=== PATIENT | female | born 1935 | race Caucasian/White ===

== ENCOUNTER 2018-03-04 11:16 | Emergency (ER) | END 2018-03-04 15:48 | disposition home or self-care (01) ==

== ENCOUNTER 2019-07-19 10:31 | Inpatient (IN) | payer MEDICARE, BC ==
[~2019-07-19] VITALS: Ht 172.7 cm; Wt 87.0 kg
[~2019-07-19 10:31] MED LIST: AMOX500 PO; ASCO1ER; ASPI81CH; ASPI81EC; ASPI81EC PO; ATEN50; ATEN50 PO; Aspir 8181 MG PO; Aspirin EC325 MG PO; BENADRYL25 MG PO; BENAML10/2 PO; BENAML10/5 PO; BENAML20/5; BENAML20/5 PO; BUPR150ER PO; BUPR75 PO; CALCAVITDA; CALMAGZIN; CITA20 PO; COLE1 PO; CYCL10; CYCL10 PO; CYCL1OPSOA; DULO30; DULO30 PO; Diclofenac Sod2.5 ML OD; ELIQUIS5 MG PO; ESCI10; ESCI5 PO; FISH1000; FISH1000 PO; FURO20 PO; GABA400 PO; GLUCHON; HYCOSAMINE; HYDCHL25 PO; HYOS.125 SL; LEVSOD75 PO; LEVSOD88; LEVSOD88 PO; MECL25 PO; METO100ER PO; METO50ER PO; METPRE4DP PO; METRIBP PO; MODAFINIL100 MG PO; NEBI10 PO; NIAC500ER PO; NITR.4SL SL; NITR100CA PO; NITRSPRAY SL; Norco 5-325 Ta1 EACH PO; OMEP20ER; OMEP20ER PO; OMEP40CA12 PO; OMEPRAZOLE CAP 20M; OMEPRAZOLE MAGN20 MG PO; Omeprazole20 M1 PO; POLYMYXIN B; POTCHL10ER; POTCHL10ER PO; POTCHL20ER PO; PRAV20; PRAV20 PO; PRAV40 PO; PRED1SU BOTHEYES; PREVPAC PO; Percocet 5-3251 EACH PO; Prednisone20 MG PO; SERT50 PO; TOCO400; TRAM50 PO; TRAVER2180; TRI; TRIAOIA; TRIHYD5075; Ultram50 MG PO; VENL75; VITAMIN D-32000 UNIT PO; WARF10 PO; WARF2.5 PO; WARF3 PO; WARF5; WARF5 PO; WARF7.5 PO; ZOLP5; [UNRECOGNIZED DRUG - OTHER]
[2019-07-19 11:17] LABS: Source, Urine Clean Catch
[2019-07-19 11:21] LABS: Appearance, Urine Hazy (Clear); Bilirubin, Urine Neg (Neg); Blood, Urine 5+ (Neg); Color, Urine Yellow (P-Yellow); Glucose Qualitative, Urine Neg (Neg); Ketones, Urine 1+ (Neg); Leukocyte Esterase, Urine 1+ (Neg); Nitrite, Urine Neg (Neg); Protein, Urine 3+ (Neg); Urobilinogen, Urine NORM (Normal)
[2019-07-19 11:41] LABS: BASOPHILS ABSOLUTE AUTO 0.02 K/mm3 (0.00-0.23); BASOPHILS PERCENT AUTO 0 % (0-2); EOSINOPHILS ABSOLUTE AUTO 0.01 K/mm3 (0.00-0.68); EOSINOPHILS PERCENT AUTO 0 % (0-6); Hematocrit 44.6 % (33.0-51.0); Hemoglobin 14.7 g/dL (11.5-16.0); IMMATURE GRAN ABSOLUTE AUTO 0.11 K/mm3 (0.00-0.10); IMMATURE GRAN PERCENT AUTO 1 % (0-1); LYMPHOCYTES ABSOLUTE AUTO 0.81 K/mm3 (0.84-5.20); LYMPHOCYTES PERCENT AUTO 5 % (21-46); MONOCYTES ABSOLUTE AUTO 0.98 K/mm3 (0.16-1.47); MONOCYTES PERCENT AUTO 6 % (4-13); Mean Corpuscular HGB 29.8 pg (26.0-34.0); Mean Corpuscular Volume 90 fL (80-100); Mean Platelet Volume 8.9 fL (9.1-12.4); NEUTROPHILS PERCENT AUTO 88 % (41-73); Platelet Count 295 K/mm3 (150-400); RDW Coefficient Variation 13.4 % (11.7-14.2); RDW Standard Deviation 43.9 fL (35.1-46.3); Red Blood Cell Count 4.94 M/mm3 (3.80-5.20); White Blood Cell Count 15.83 K/mm3 (4.00-11.30)
[2019-07-19 11:46] LABS: Amorphous Heavy (0-Heavy); Bacteria Mod /hpf; Squamous Epithelial Cells Mod /hpf (Few)
[2019-07-19 11:51] LABS: Albumin, Blood 3.8 g/dL (3.4-5.0); Albumin/Globulin Ratio 1.1 (0.8-1.8); Bilirubin, Total 0.6 mg/dL (0.1-1.0); Bun/Creatinine Ratio 19.2 (12.0-20.0); Calcium, Blood 9.3 mg/dL (8.5-10.1); Creatinine, Blood 2.5 mg/dL (0.40-1.00); Globulin, Blood 3.6 g/dL (2.2-4.0); Magnesium, Blood 2.1 mg/dL (1.6-2.4); Potassium, Blood 4.4 mmol/L (3.5-5.5); Total Protein, Blood 7.4 g/dL (6.4-8.2)
[2019-07-19] MEDS ORDERED: DULO60 PO (12:03)
[2019-07-19] MEDS ORDERED: CEPH500 PO (12:24)
[2019-07-19] MEDS ORDERED: Bystolic20 MG PO (15:20)
[2019-07-19] MEDS ORDERED: RIVASTIGMINE1 EAC1 TOP (15:21)
[2019-07-19 15:52] LABS: Creatine Kinase MB 58.7 ng/mL (0.0-3.6); Creatine Kinase MB Index 2.7 (0.0-4.0)
[2019-07-19 17:47] LABS: U Amphetamine Screen Not Detected; U Barbituate Screen Not Detected; U Benzodiazapine Screen Not Detected; U Buprenorphine Screen Not Detected; U Cannabinoids Screen Not Detected; U Cocaine Screen Not Detected; U Methadone Screen Not Detected; U Methamphetamine Screen Not Detected; U Opiates Screen Not Detected; U Oxycodone Screen Not Detected; U Phencyclidine Screen Not Detected; U Propoxyphene Screen Not Detected
--- NOTE | 2019-07-19 18:50 | NUR ---
ADMISSION PATIENT ARRIVE TO ROOM AROUND 1745, ADMISSION COMPLETED EXCEPT FOR ADMIT ASSESSMENT. PT INCONTINENT OF BM, CORY CARE DONE. SHE USED A BEDPAN TO URINATE, 24 HOUR URINE COLLECTION STARTED ON ICE. BILAT KNEES ARE RED, WARM, SWOLLEN, AND HAVE SUPERFICIAL WOUNDS. L FOREARM ALSO HAS SMALL OPEN AREA. PICTURES TAKEN OF WOUNDS AND PLACED IN CHART. PATIENT IS ALERT AND ORIENTED X2, HAS VERY SHORT TERM MEMORY LOSS. DINNER ORDERED AND GIVEN TO PATIENT. PATIENT DENIES PAIN, NAUSEA, OR SOB AT THIS TIME. DAUGHTER IN ROOM HELPING TO ANSWER QUESTIONS, SHE WROTE HER NUMBER ON THE WHITEBOARD. REPORT GIVEN TO BASEBALL HAND SEWER RN.
--- NOTE | 2019-07-20 04:38 | NUR ---
RAM PRESS OPERATOR SUMMARY NEW ADMIT JUST BEFORE START OF SHIFT. PT AAOX3, REMEMBERS STAFF NAMES, KNOWS ITS 2019 AND THAT SHE'S IN A HOSPITAL IN [place]. UNABLE TO STATE THE MONTH OR WHAT CITY SHE IS IN. PT IS MILDLY CONFUSED BUT IS EASILY REORIENTED. PT PULLED FIRST IV OUT, NEW 22G IV PLACED AND MAINTAINENCE FLUIDS CONTINUED. BED ALARM ON FOR SAFETY. PT IS A 2 PERSON ASSIST TO BSC, ALSO INCONTINENT AT TIMES. VSS, WILL CONTINUE TO MONITOR.
[2019-07-20 05:50] LABS: BASOPHILS ABSOLUTE AUTO 0.02 K/mm3 (0.00-0.23); BASOPHILS PERCENT AUTO 0 % (0-2); EOSINOPHILS ABSOLUTE AUTO 0.03 K/mm3 (0.00-0.68); EOSINOPHILS PERCENT AUTO 0 % (0-6); Hematocrit 39.3 % (33.0-51.0); Hemoglobin 12.7 g/dL (11.5-16.0); IMMATURE GRAN ABSOLUTE AUTO 0.05 K/mm3 (0.00-0.10); IMMATURE GRAN PERCENT AUTO 1 % (0-1); LYMPHOCYTES ABSOLUTE AUTO 1.35 K/mm3 (0.84-5.20); LYMPHOCYTES PERCENT AUTO 12 % (21-46); MONOCYTES ABSOLUTE AUTO 0.55 K/mm3 (0.16-1.47); MONOCYTES PERCENT AUTO 5 % (4-13); Mean Corpuscular HGB 29.1 pg (26.0-34.0); Mean Corpuscular HGB Conc 32.3 g/dL (31.5-36.5); Mean Corpuscular Volume 90 fL (80-100); Mean Platelet Volume 9.2 fL (9.1-12.4); NEUTROPHILS ABSOLUTE AUTO 9.01 K/mm3 (1.96-9.15); NEUTROPHILS PERCENT AUTO 82 % (41-73); Platelet Count 248 K/mm3 (150-400); RDW Coefficient Variation 13.5 % (11.7-14.2); RDW Standard Deviation 44.5 fL (35.1-46.3); Red Blood Cell Count 4.36 M/mm3 (3.80-5.20); White Blood Cell Count 11.01 K/mm3 (4.00-11.30)
[2019-07-20 06:06] LABS: Albumin, Blood 2.9 g/dL (3.4-5.0); Bilirubin, Total 0.5 mg/dL (0.1-1.0); Bun/Creatinine Ratio 20.5 (12.0-20.0); Calcium, Blood 8.3 mg/dL (8.5-10.1); Creatinine, Blood 2.58 mg/dL (0.40-1.00); Potassium, Blood 3.5 mmol/L (3.5-5.5); Total Protein, Blood 5.9 g/dL (6.4-8.2)
--- NOTE | 2019-07-20 17:19 | NUR ---
SHIFT SUMMARY- PT A/O TO PERSON AND PLACE. PT UP TO CHAIR AND BSC WITH 2 ASSIST. LS CLEAR, ON RA, SOB WITH EXERTION. PT DENIES ANY COMPLAINTS AT REST BUT DOES REPORT SOME LEG PAIN WITH AMBULATION. 500ML NS BOLUS GIVEN, IVF AT 75ML/HR THEREAFTER. PT CONTINENT WITH OCC INCONT. NO OTHER ACUTE CHANGES THIS SHIFT.
--- NOTE | 2019-07-21 04:57 | NUR ---
PUBLISHING DIRECTOR SUMMARY NO ACUTE CHANGES THIS SHIFT. PT AAOX2, VERY FORGETFUL AND IMPULSIVE. BED ALARM ON. PT ATTEMPTS TO GET UP OFTEN BUT USUALLY JUST SITS UP AT SIDE OF BED. PT STRENGTH SEEMS IMPROVED COMPARED TO YESTERDAY. PT ABLE TO STAND UP AND SHUFFLE TO [facility] MUCH EASIER WITH A 2 ASSIST. ELEVATED BP WITH AM VITALS, WILL GIVE PRN HYDRALAZINE. OTHER VSS, WILL CONTINUE TO MONITOR.
[2019-07-21 06:53] LABS: Albumin, Blood 2.8 g/dL (3.4-5.0); Bilirubin, Total 0.5 mg/dL (0.1-1.0); Bun/Creatinine Ratio 22.5 (12.0-20.0); Calcium, Blood 8.4 mg/dL (8.5-10.1); Creatinine, Blood 1.91 mg/dL (0.40-1.00); Globulin, Blood 2.9 g/dL (2.2-4.0); Potassium, Blood 3.5 mmol/L (3.5-5.5); Total Protein, Blood 5.7 g/dL (6.4-8.2)
--- NOTE | 2019-07-21 17:11 | NUR ---
PT AOX2 AND HAS A LOT OF CONFUSION AND WAS REPORTING HEARING MUSIC. PT SEEMS VERY IMPULSIVE AND CAMERA IS ON TO HELP MONITOR HER. PT HAS HAD FREQUENT URINATION SINCE ARRIVING TO HER NEW ROOM. PT DOES NOT CALL APPROPRIATELY. WILL CONTINUE TO MONITOR.
--- NOTE | 2019-07-21 18:35 | NUR ---
PT BECAME MORE AND MORE IMPULSIVE, BUT HAD BEEN REDIRECTABLE. AROUND 1730 PT SUDDENLY BECAME AGGITATED AND THEN GOT TO THE END OF HER BED AND REFUSED TO GET BACK IN BED. PT THEN STATED SHE WAS NOT GOING TO DO ANYTHING HER CAREGIVERS ASKED OF HER. THIS SECURITY AND COMPLIANCE PROJECT MANAGER AND AID TRIED MULTIPLE METHODS TO REDIRECT PT AND GET HER TO LET GO AND GET INTO BED. SECURITY WAS CALLED AND WITH 5 PEOPLE PT WAS PUT INTO A POSE AND GENTLY AND WITH CARE PUT BACK INTO HER BED. PT TRIED A COUPLE TO TIMES TO ACT LIKE SHE WOULD HIT, BUT DID NOT. PT HAS POSE ON AND IS TOLERATING AT THIS TIME. PT HAS REFUSED IV PLACEMENT AND DAUGHTER IS AT BEDSIDE. PT IS QUIET AT THIS TIME WILL CONTINUE TO MONITOR.
--- NOTE | 2019-07-21 18:39 | NUR ---
Spiritual Care inital note: Mrs. Wright is a citl[place] woman, who admits "I have memory problems." She has a strong stefanie that sustains her and a loving dtr who cares for her. She expressed enormous gratitude to God for all these things. We spoke about ehr stefanie and I affirmed God's love for her. Provided prayer at bedside. Mrs. Wright denies pain, fear, or worry. I will remain available.
--- NOTE | 2019-07-22 03:58 | NUR ---
SHIFT SUMMARY AOX SELF. VERY CONFUSED, BUT EASY TO REDIRECT. SUNDOWNER. SHAWANDA JONEST @ 9675, PT TOLERATING WELL. ALSO ON CAMERA IN ROOM. LS CLEAR. DENIES SOB. NO C/O NAUSEA OR PAIN. INC, BED CHANGE X2. ABRASIONS ON KNEES AND TOES ALONG WITH BRUISING THROUGHOUT HIPS AND LOWER EXT FROM PREVIOUS FALL AT HOME. R FA IV HAS NS @ 75. TYLENOL GIVEN @ 2119. SEROQUEL GIVEN @ 1914 AND 2319. VSS ON RA.
[2019-07-22 05:18] LABS: BASOPHILS ABSOLUTE AUTO 0.07 K/mm3 (0.00-0.23); BASOPHILS PERCENT AUTO 1 % (0-2); EOSINOPHILS ABSOLUTE AUTO 0.19 K/mm3 (0.00-0.68); EOSINOPHILS PERCENT AUTO 3 % (0-6); Hematocrit 43.5 % (33.0-51.0); Hemoglobin 14.2 g/dL (11.5-16.0); IMMATURE GRAN ABSOLUTE AUTO 0.02 K/mm3 (0.00-0.10); IMMATURE GRAN PERCENT AUTO 0 % (0-1); LYMPHOCYTES PERCENT AUTO 27 % (21-46); MONOCYTES ABSOLUTE AUTO 0.59 K/mm3 (0.16-1.47); MONOCYTES PERCENT AUTO 8 % (4-13); Mean Corpuscular HGB 29.8 pg (26.0-34.0); Mean Corpuscular HGB Conc 32.6 g/dL (31.5-36.5); Mean Corpuscular Volume 91 fL (80-100); Mean Platelet Volume 8.7 fL (9.1-12.4); NEUTROPHILS ABSOLUTE AUTO 4.36 K/mm3 (1.96-9.15); NEUTROPHILS PERCENT AUTO 61 % (41-73); Platelet Count 229 K/mm3 (150-400); RDW Coefficient Variation 13.2 % (11.7-14.2); Red Blood Cell Count 4.76 M/mm3 (3.80-5.20); White Blood Cell Count 7.13 K/mm3 (4.00-11.30)
[2019-07-22 05:44] LABS: Bun/Creatinine Ratio 21.8 (12.0-20.0); Calcium, Blood 8.8 mg/dL (8.5-10.1); Creatinine, Blood 1.19 mg/dL (0.40-1.00); Potassium, Blood 3.4 mmol/L (3.5-5.5)
--- NOTE | 2019-07-22 17:25 | NUR ---
PT WAS VERY SLEEPY AT THE BEGINNING OF SHIFT AND STILL HAD HER POSE VEST ON. ONCE PT WOKE UP SHE SEEMED TO BE BACK TO HER COOPERATIVE SELF. SHE WAS GIVEN A BATH AND POSE VEST WAS REMOVED. PHYSICAL THERAPY WAS ABLE TO GET HER TO HER CHAIR AND FOUND PT IS A HEAVY TWO PERSON ASSIST. PT SO FAR HAS CONTINUED TO BE COOPERATIVE AND PLEASANT WILL CONTINUE TO MONITOR.
--- NOTE | 2019-07-23 05:44 | NUR ---
SHIFT SUMMARY: PATIENT WAS INCREASINGLY RESTLESS AND ATTMEPTING TO GET OUT OF BED EARLY IN THE SHIFT. GAVE SEROQUEL WITH BEDTIME MEDS. AROUND 2330 PATIENT WENT TO SLEEP AND SLEPT WELL THRU MUCH OF THE SHIFT. PT WAS ROUSABLE AND HAD TURNS AND LINEN CHECKS Q2 HRS PER ROUTINE. BED LOW, LOCKED AND ALARMED. CALL ESCOBAR WITHIN REACH
--- NOTE | 2019-07-23 06:47 | NUR ---
REASSESSMENT OF IV RFA, UNWRAPPED COBAN TO FIND BRUISED KE ABOVE IV SITE. ALSO PATIENT HAS ELEVATE BP 187/103 CALLED PROVIDER
--- NOTE | 2019-07-23 06:48 | NUR ---
PATIENT BP ELEVATED 187/103 CALLED PROVIDERALSO PT IV IS NO GOOD REMOVED LEAKING, TENDER
--- NOTE | 2019-07-23 18:13 | NUR ---
SHIFT SUMMARY LUIS EDUARDO DENIED PAIN THIS SHIFT. FAMILY VISITED. SHE GOT UP TO A CHAIR FOR SEVERAL HOURS, AND USED BED RASMUSSEN AND BSC FOR TOILETING. INCONTINENT AT TIMES. FULLY ALERT, DEFINITELY CONFUSED WITH SHORT TERM MEMORY LOSS. PT AND OT EVALUATED. TOOK MEDS PRESCRIBED. CALL LIGHT IN REACH, WCTM, BED ALARM ON
--- NOTE | 2019-07-24 07:11 | NUR ---
Rn summary: Patient is alert and oriented to self. She is easily directable. Pt was up in chair at beginning of shift. Pt is a 2 max assist to bed and to BSC. Pt was incontinent x1 of urine with full linen change at beginning of shift. Pt was medicated with seroquel 25mg at bedtime and rested well. Patient picked the scab on her left knee and it was bleeding, cleaned with saline and mepilex drsg applied. Pt is medically stable and is awaiting placement. Bed alarm is on for safety, Pt has not used the call light. Report to oncomming shift.
--- NOTE | 2019-07-24 17:36 | NUR ---
SHIFT SUMMARY: PT IS ALERT TO SELF AND SITUATION AND REMAINS CONFUSED AT BASELINE NEEDING REMINDERS AND CUES TO WHY SHE IS HERE AND WHAT HER DC PLAN IS. PT IS A X 1 ASSIST WITH FWW AND GAIT BELT FROM BED TO BSC AND TO UP TO CHAIR FOR MEALS. PER MD ORDER IV ACCESS WAS DCD WITH NO ISSUE. ABRASIONS TO BILAT KNEES WERE CLEANSED AND LEFT OPEN TO AIR TO ALLOW THEM TO HEAL. NURSE FROM [facility] PT TODAY FOR ADMIT TOMORROW TO [facility]. PT IS ABLE TO MAKE HER NEEDS KNOWN BUT NEEDS REMINDED TO USE CALL LIGHT INSTEAD OF HITTING HER TABLE.
--- NOTE | 2019-07-25 05:58 | NUR ---
SHIFT SUMMARY PT VERY CONFUSED FORGETFUL IMPULSIVE TO GET OOB BY HERSELF. BED ALARM IN USE. 1-2 PERSON ASSIST C GAIT BELT AND WALKER TO BSC. GAIT IS UNSTEADY AND SHE LEANS BACKWARDS HEAVILY. POOR BODY COORDINATION AND DOESN'T SEEM TO UNDERSTAND CUES WELL. URINATION IS FREQUENT, URGENT AND SMALL AMOUNTS ALSO URINE FOUL SMELLING. BLADDER SCAN POST-VOID SHOWED 20ML. BED ALARM IN USE.
[2019-07-25 08:45] LABS: Calcium, Blood 8.6 mg/dL (8.5-10.1); Creatinine, Blood 1.13 mg/dL (0.40-1.00); Potassium, Blood 3.8 mmol/L (3.5-5.5)
--- NOTE | 2019-07-25 12:55 | NUR ---
PT DCD TO [facility]. ALL BELONGINGS SENT WITH PT. PT TRANSPORTED VIA W/C. REPORT CALLED TO [facility]. PACKET SENT WITH PT. PT STABLE UPON DC.
== END 2019-07-25 12:31 | DRG 683 ==
LOC: ER 10:31 → MEDS 16:07 → ENPENDDIS 07-25 11:22 → MEDS 07-25 12:31
PROVIDERS: Emergency Medicine; Internal Medicine; Nurse Practitioner Acute Care; ADMIT Internal Medicine
DX: N17.9 Acute kidney failure, unspecified (principal); F02.81 Dementia in other diseases classified elsewhere, unspecified severity, with behavioral disturbance; I48.20 Chronic atrial fibrillation, unspecified; F05 Delirium due to known physiological condition; R29.6 Repeated falls; I10 Essential (primary) hypertension; G30.1 Alzheimer's disease with late onset; E03.9 Hypothyroidism, unspecified; I12.9 Hypertensive chronic kidney disease with stage 1 through stage 4 chronic kidney disease, or unspecified chronic kidney disease; K21.9 Gastro-esophageal reflux disease without esophagitis; Z79.01 Long term (current) use of anticoagulants; G47.33 Obstructive sleep apnea (adult) (pediatric); Z91.19 Patient's noncompliance with other medical treatment and regimen; Z95.0 Presence of cardiac pacemaker; Z66 Do not resuscitate; M16.11 Unilateral primary osteoarthritis, right hip; N18.4 Chronic kidney disease, stage 4 (severe); T79.6XXA Traumatic ischemia of muscle, initial encounter; I95.9 Hypotension, unspecified; E86.0 Dehydration
CPT/HCPCS: 36415; 70450; 71046; 73562-RT; 80048; 80053; 81001; 82550; 82553; 82570; 83735; 84300; 85025; 87040; 87086; 93005; 93010; 96361; 96365; 97110; 97116; 97162; 97166; 97530; 97535; 99285-25; A9270; G0480; J0696; J7030; J7040; P9612

== ENCOUNTER 2023-07-14 18:36 | Emergency (ER) | payer MEDICARE, BC ==
[~2023-07-14] VITALS: Ht 167.6 cm; Wt 77.1 kg
[~2023-07-14 18:36] MED LIST changes: +AMLODIPINE-BEN1 EAC2 PO; +ASPIR 8181 M1 PO; +Bystolic20 MG PO; +CEPH500 PO; +DULO60 PO; +QUETIAPINE FUMA5012 PO; +RIVASTIGMINE1 EAC1 TOP
[2023-07-14 20:15] LABS: BASOPHILS ABSOLUTE AUTO 0.03 K/mm3 (0.00-0.23); BASOPHILS PERCENT AUTO 1 % (0-2); EOSINOPHILS PERCENT AUTO 0 % (0-6); IMMATURE GRAN ABSOLUTE AUTO 0.03 K/mm3 (0.00-0.10); IMMATURE GRAN PERCENT AUTO 1 % (0-1); LYMPHOCYTES ABSOLUTE AUTO 0.42 K/mm3 (0.84-5.20); LYMPHOCYTES PERCENT AUTO 7 % (21-46); MONOCYTES ABSOLUTE AUTO 0.62 K/mm3 (0.16-1.47); MONOCYTES PERCENT AUTO 10 % (4-13); Mean Corpuscular HGB 31.1 pg (26.0-34.0); Mean Corpuscular HGB Conc 33.3 g/dL (31.5-36.5); Mean Corpuscular Volume 93 fL (80-100); Mean Platelet Volume 8.8 fL (9.1-12.4); NEUTROPHILS ABSOLUTE AUTO 5.24 K/mm3 (1.96-9.15); NEUTROPHILS PERCENT AUTO 83 % (41-73); Platelet Count 209 K/mm3 (150-400); RDW Coefficient Variation 13.2 % (11.7-14.2); RDW Standard Deviation 45.1 fL (35.1-46.3); White Blood Cell Count 6.34 K/mm3 (4.00-11.30)
[2023-07-14 20:33] LABS: Albumin, Blood 3.2 g/dL (3.4-5.0); Albumin/Globulin Ratio 0.9 (0.8-1.8); Bilirubin, Total 0.4 mg/dL (0.1-1.0); Calcium, Blood 8.6 mg/dL (8.5-10.1); Creatinine, Blood 0.93 mg/dL (0.40-1.00); Globulin, Blood 3.7 g/dL (2.2-4.0); Potassium, Blood 3.6 mmol/L (3.5-5.5); Total Protein, Blood 6.9 g/dL (6.4-8.2)
[2023-07-14 20:43] VITALS: BP 120/82
[2023-07-14 20:56] LABS: Source, Urine Clean Catch
[2023-07-14 21:02] LABS: Appearance, Urine Hazy (Clear); Bilirubin, Urine Neg (Neg); Blood, Urine 5+ (Neg); Color, Urine Yellow (P-Yellow); Glucose Qualitative, Urine Neg (Neg); Ketones, Urine Neg (Neg); Leukocyte Esterase, Urine Neg (Neg); Nitrite, Urine Pos (Neg); Protein, Urine 2+ (Neg); Urobilinogen, Urine NORM (Normal)
[2023-07-14 21:10] LABS: Bacteria Many /hpf; Red Blood Cells, Urine 0-2 /hpf (0-2); Squamous Epithelial Cells Few /hpf (Few)
[2023-07-14] MEDS ORDERED: CEFD300 PO (22:38)
== END 2023-07-14 23:30 | disposition home or self-care (01) ==
LOC: ER 18:36
PROVIDERS: Emergency Medicine
DX: U07.1 COVID-19 (principal); N39.0 Urinary tract infection, site not specified; I48.20 Chronic atrial fibrillation, unspecified; F03.90 Unspecified dementia, unspecified severity, without behavioral disturbance, psychotic disturbance, mood disturbance, and anxiety; I10 Essential (primary) hypertension; E03.9 Hypothyroidism, unspecified; Z88.2 Allergy status to sulfonamides; Z88.8 Allergy status to other drugs, medicaments and biological substances; Z91.040 Latex allergy status; Z79.01 Long term (current) use of anticoagulants; Z79.890 Hormone replacement therapy; Z79.82 Long term (current) use of aspirin; Z79.899 Other long term (current) drug therapy; Z95.0 Presence of cardiac pacemaker
CPT/HCPCS: 51701; 71045; 80053; 81001; 85025; 87077; 87086; 87186; 93005; 93010; 96365-59; 99284-25; A9270; J0696

== ENCOUNTER 2023-08-19 12:37 | Emergency (ER) | payer MEDICARE, BC ==
[~2023-08-19] VITALS: Ht 172.7 cm; Wt 69.0 kg
[~2023-08-19 12:37] MED LIST changes: +CEFD300 PO
[2023-08-19 14:00] LABS: BASOPHILS ABSOLUTE AUTO 0.04 K/mm3 (0.00-0.23); BASOPHILS PERCENT AUTO 1 % (0-2); EOSINOPHILS ABSOLUTE AUTO 0.06 K/mm3 (0.00-0.68); EOSINOPHILS PERCENT AUTO 1 % (0-6); Hematocrit 45.4 % (33.0-51.0); Hemoglobin 14.6 g/dL (11.5-16.0); IMMATURE GRAN ABSOLUTE AUTO 0.03 K/mm3 (0.00-0.10); IMMATURE GRAN PERCENT AUTO 0 % (0-1); LYMPHOCYTES ABSOLUTE AUTO 1.74 K/mm3 (0.84-5.20); LYMPHOCYTES PERCENT AUTO 22 % (21-46); MONOCYTES ABSOLUTE AUTO 0.43 K/mm3 (0.16-1.47); MONOCYTES PERCENT AUTO 6 % (4-13); Mean Corpuscular HGB 30.7 pg (26.0-34.0); Mean Corpuscular HGB Conc 32.2 g/dL (31.5-36.5); Mean Corpuscular Volume 95 fL (80-100); Mean Platelet Volume 9.5 fL (9.1-12.4); NEUTROPHILS PERCENT AUTO 71 % (41-73); Platelet Count 242 K/mm3 (150-400); RDW Coefficient Variation 13.6 % (11.7-14.2); RDW Standard Deviation 48.4 fL (35.1-46.3); Red Blood Cell Count 4.76 M/mm3 (3.80-5.20)
[2023-08-19 14:31] LABS: Albumin/Globulin Ratio 0.8 (0.8-1.8); Bilirubin, Total 0.5 mg/dL (0.1-1.0); Bun/Creatinine Ratio 24.6 (12.0-20.0); Calcium, Blood 8.8 mg/dL (8.5-10.1); Creatinine, Blood 1.38 mg/dL (0.40-1.00); Globulin, Blood 3.6 g/dL (2.2-4.0); Total Protein, Blood 6.6 g/dL (6.4-8.2)
[2023-08-19 15:43] LABS: Influenza A, PCR NEGATIVE (NEGATIVE); Influenza B, PCR NEGATIVE (NEGATIVE); Resp Syncytial Virus, PCR NEGATIVE (NEGATIVE); SARS-Cov-2 (COVID-19) PCR, MMC NEGATIVE (NEGATIVE)
[2023-08-19 17:35] LABS: Source, Urine Straight Cath
[2023-08-19 17:43] LABS: Appearance, Urine Clear (Clear); Bilirubin, Urine Neg (Neg); Blood, Urine 2+ (Neg); Color, Urine Yellow (P-Yellow); Glucose Qualitative, Urine Neg (Neg); Ketones, Urine Neg (Neg); Leukocyte Esterase, Urine Neg (Neg); Nitrite, Urine Neg (Neg); Protein, Urine 1+ (Neg); Specific Gravity, Urine 1.015 (1.003-1.022); Urobilinogen, Urine NORM (Normal)
[2023-08-19 18:03] LABS: Bacteria Few /hpf; Hyaline Casts 0-2 /lpf (0-2); Squamous Epithelial Cells Few /hpf (Few); White Blood Cells, Urine 0-2 /hpf (0-5)
[2023-08-19] MEDS ORDERED: AMOCLA875 PO (19:27)
[2023-08-19] MEDS ORDERED: Flagyl500 MG PO (19:27)
[2023-08-19 19:30] VITALS: BP 124/91
== END 2023-08-19 19:46 | disposition home or self-care (01) ==
LOC: ER 12:37
PROVIDERS: Emergency Medicine
DX: K52.9 Noninfective gastroenteritis and colitis, unspecified (principal); I48.20 Chronic atrial fibrillation, unspecified; I10 Essential (primary) hypertension; Z88.2 Allergy status to sulfonamides; Z88.8 Allergy status to other drugs, medicaments and biological substances; Z91.040 Latex allergy status; Z79.01 Long term (current) use of anticoagulants; Z79.899 Other long term (current) drug therapy; Z79.82 Long term (current) use of aspirin
CPT/HCPCS: 0241U; 74177; 80053; 81001; 83690; 85025; 93005; 93010; 96374-59; 96375; 99285-25; A9270; J2270; J2405; J7030; P9612; Q9967

== ENCOUNTER 2023-09-12 09:17 | Day surgery (SDC) | payer MEDICARE, BC ==
[~2023-09-12] VITALS: Ht 167.6 cm; Wt 69.0 kg
[~2023-09-12 09:17] MED LIST changes: +AMOCLA875 PO; +CRANBERRY500 MG PO; +Flagyl500 MG PO; +VITAMIN B122500 MC1 PO; +VITAMIN D350 MC3 PO
[2023-09-12 09:39] VITALS: BP 143/81
[2023-09-12 11:30] VITALS: BP 175/87
--- NOTE | 2023-09-12 11:30 | NUR ---
PT BACK TO RECOVERY ROOM. PT DROWYS BUT WAKES EASLY WITH VERBAL STIMULI. VSS.
[2023-09-12] MEDS ORDERED: CEPH500 PO (11:46)
[2023-09-12 12:00] VITALS: BP 174/84
--- NOTE | 2023-09-12 12:00 | NUR ---
ARYA CALLED INTO [facility]
[2023-09-12 12:15] VITALS: BP 161/102
[2023-09-12 12:30] VITALS: BP 147/79
[2023-09-12 13:00] VITALS: BP 145/97
--- NOTE | 2023-09-12 13:34 | NUR ---
PT DAUGHTER VERBALIZE D/C INSTRUCTIONS. DRESSING TO L CHEST IS DRY AND INTACT. PT DRESSED AND ASSISTED INTO WHEELCHAIR WITH 2 PERSON ASSIST. PT WHEELED OUT TO CAR AND ASSISTED INTO PT DAUGHTER'S CAR. IV D/C CATHETER INTACT.
== END 2023-09-12 13:30 | disposition home or self-care (01) ==
LOC: MHTC 09:17
DX: Z45.010 Encounter for checking and testing of cardiac pacemaker pulse generator [battery] (principal); I48.0 Paroxysmal atrial fibrillation; I25.10 Atherosclerotic heart disease of native coronary artery without angina pectoris; I10 Essential (primary) hypertension; E78.00 Pure hypercholesterolemia, unspecified; E03.9 Hypothyroidism, unspecified; Z79.899 Other long term (current) drug therapy; Z88.2 Allergy status to sulfonamides; Z88.8 Allergy status to other drugs, medicaments and biological substances; Z91.040 Latex allergy status
CPT/HCPCS: 33228; 99152; 99153; C1785; J0690; J1644; J2250; J3010; J7040

== ENCOUNTER → 2023-11-28 | Outpatient (CLI) | payer MEDICARE, BC ==
[2023-11-28 16:21] LABS: Appearance, Urine Turbid (Clear); Bilirubin, Urine Neg (Neg); Blood, Urine 2+ (Neg); Color, Urine Yellow (P-Yellow); Glucose Qualitative, Urine Neg (Neg); Ketones, Urine Neg (Neg); Leukocyte Esterase, Urine 3+ (Neg); Nitrite, Urine Pos (Neg); Protein, Urine 3+ (Neg); Urobilinogen, Urine NORM (Normal)
[2023-11-28 16:34] LABS: Amorphous Heavy (0-Heavy); Triple Phosphate Crystals Many /hpf
[2023-11-28 16:37] LABS: White Blood Cells, Urine 0-2 /hpf (0-5)
[2023-11-28 16:38] LABS: Bacteria Many /hpf; Red Blood Cells, Urine 0-2 /hpf (0-2); Squamous Epithelial Cells Few /hpf (Few)
== END ==
LOC: LAB SHORT 11:30 → LAB 11:30
PROVIDERS: Internal Medicine
DX: N39.0 Urinary tract infection, site not specified (principal)
CPT/HCPCS: 81001; 87077; 87086; 87186

== ENCOUNTER → 2024-01-21 | Outpatient (CLI) | payer MEDICARE, BC ==
[~2024-01-21] MED LIST changes: +QUET100
[2024-01-21 14:22] LABS: Source, Urine Clean Catch
[2024-01-21 15:07] LABS: Appearance, Urine Hazy (Clear); Bilirubin, Urine Neg (Neg); Blood, Urine 2+ (Neg); Color, Urine Yellow (P-Yellow); Glucose Qualitative, Urine Neg (Neg); Ketones, Urine Neg (Neg); Leukocyte Esterase, Urine 2+ (Neg); Nitrite, Urine Pos (Neg); Protein, Urine Neg (Neg); Urobilinogen, Urine NORM (Normal)
[2024-01-21 15:14] LABS: Bacteria Many /hpf; Squamous Epithelial Cells Mod /hpf (Few); Transitional Epithelial Cells Rare /hpf (0-Rare)
== END | disposition home or self-care (01) ==
LOC: LAB 14:18 → LAB SHORT 14:18
PROVIDERS: Internal Medicine
DX: N39.0 Urinary tract infection, site not specified (principal)
CPT/HCPCS: 81001; 87077; 87086; 87186